=== PATIENT | female | born 1995 | race Hispanic/Latino ===

== ENCOUNTER 2025-05-07 14:00 | Inpatient (IN) | payer SELFPAY ==
[~2025-05-07 14:00] MED LIST: Iopamidol 300 61% 100 ML VIAL FS ONE
[2025-05-07] MEDS ORDERED: Ondansetron PF 4 MG/2 ML Vial ONE ×2 (14:22→18:25)
[2025-05-07] MEDS ORDERED: Cefepime 2 GM VIAL ONE (14:22)
[2025-05-07 14:36] LABS: Actual Bicarbonate (HCO3v) 16.9 mEq/L (22-28); Analyzer IN Cardio CS ER; Base Excess -1.6 mEq/L (-2 - +2); Calcium, Ionized (venous) 1.16 mmol/L (1.16-1.32); Chloride (VBG) 105 mmol/L (98-106); Critical Notified By: clumpkins rt; Hematocrit-VBG 39 % (36.0-47.0); Hemoglobin (Hb) 13.4 g/dL (11.7-15.5); Potassium (VBG) 3.46 mmol/L (3.70-5.30); Puncture Site Other Site; RapidComm Collect By ers.n4; Sodium 138 mmol/L (133-146)
[2025-05-07 15:03] LABS: Glucose, Urine (Dipstick) Normal (Negative); Leukocyte 500 (Negative); Protein, Urine (Dipstick) 100 mg/dl (Neg-Trace); Specific Gravity, Urine 1.010 (1.005-1.030)
[2025-05-07 15:05] LABS: Hematocrit 35.4 % (34.9-44.5); Hemoglobin 12.5 g/dL (12.0-15.5); Mean Corpuscular Hemoglobin 30.9 pg (27.0-33.0); Mean Corpuscular Volume 87.4 fL (81.6-98.3); Platelet Count 252 10x3/uL (150-450); Red Blood Cell (RBC) Count 4.05 10x6/uL (3.90-5.03); White Blood Cell (WBC) Count 6.51 10x3/uL (3.5-10.5)
[2025-05-07 15:10] LABS: ALT (SGPT) 23 U/L (Less than 34); AST (SGOT) 21 U/L (11-34); Albumin 3.5 g/dL (3.1-4.5); Alkaline Phosphatase 110 U/L (40-110); Anion Gap 16 mmol/L (10-20); BUN (Urea Nitrogen) 17 mg/dL (7.0-18.7); Bilirubin, Total 0.7 mg/dL (0.3-1.2); Calc. Creatinine Clearance 0 mL/min (70-130); Calcium 9.9 mg/dL (7.8-10.44); Carbon Dioxide 17 mmol/L (22-29); Chloride 107 mmol/L (98-107); Globulin 4.0 g/dL (2.4-3.5); Glucose 94 mg/dL (70-105); Potassium 3.4 mmol/L (3.5-5.1); Sodium 137 mmol/L (136-145)
[2025-05-07 15:39] LABS: RBC Morphology Within Normal Limits
[2025-05-07 15:40] LABS: MDiff Complete? YES; Platelet Adequacy Comment Appears Adequate
[2025-05-07 15:51] LABS: CAUTI Indications for Culture Pelvic or flank pain; RBC/HPF Greater than 50 HPF (0-3); WBC/HPF Greater than 50 HPF (0-3)
[2025-05-07 15:53] LABS: Bacteria/HPF 2+ HPF (None Seen)
[2025-05-07 15:54] LABS: Mucous/LPF 1+ LPF (<2+)
[2025-05-07 15:57] LABS: Urine Culture Reflex Yes Yes
[2025-05-07] MEDS ORDERED: HYDROcodone/Acetaminophen 5/325 mg Tablet PO PRN ×2 (16:59)
[2025-05-07] MEDS ORDERED: Acetaminophen 500 MG TAB PO PRN (16:59)
[2025-05-07] MEDS: VANCOMYCIN 2 GRAM/400 ML BAG 2 GM in Premix 1 BAG IVPB SCH (17:53)
[2025-05-07] MEDS ORDERED: PROPOFOL 20 ML ONE (18:25)
[2025-05-07] MEDS ORDERED: Rocuronium Bromide 10 MG/ML (10ML VIAL) ONE ×2 (18:25→19:11)
[2025-05-07] MEDS ORDERED: Lidocaine 1% PF 5 ML VIAL ONE (18:25)
[2025-05-07] MEDS ORDERED: SUCCINYLCHOLINE/SOD CL,ISO/PF 200 MG/10 ML SYRINGE FS ONE (18:35)
[2025-05-07] MEDS ORDERED: Methylergonovine 0.2 MG/ML VIAL ONE (18:41)
[2025-05-07] MEDS ORDERED: Carboprost 250 MCG/ML AMP ONE (18:41)
[2025-05-07] MEDS ORDERED: Tranexamic Acid 1,000 MG/10 ML VIAL ONE (18:41)
[2025-05-07] MEDS ORDERED: SUGAMMADEX SODIUM 200 MG/2 ML VIAL ONE (19:21)
[2025-05-07] MEDS ORDERED: PHENYLEPHRINE-NS 100 MCG/ML 10 ML SYRINGE ONE (19:35)
[2025-05-07] MEDS ORDERED: Ferric Subsulfate 8 ML TOPICAL SOLN ONE (20:00)
[2025-05-07] MEDS ORDERED: Ketorolac Tromethamine 30 MG (1 mL) VIAL ONE (20:09)
[2025-05-08 00:41] LABS: Hematocrit 28.3 % (34.9-44.5); Hemoglobin 9.6 g/dL (12.0-15.5)
[2025-05-08 06:19] LABS: Hematocrit 26.5 % (34.9-44.5); Hemoglobin 8.8 g/dL (12.0-15.5); Mean Corpuscular Hemoglobin 30.3 pg (27.0-33.0); Mean Corpuscular Volume 91.4 fL (81.6-98.3); Platelet Count 212 10x3/uL (150-450); Red Blood Cell (RBC) Count 2.90 10x6/uL (3.90-5.03); White Blood Cell (WBC) Count 16.72 10x3/uL (3.5-10.5)
[2025-05-08 07:00] LABS: Anion Gap 14 mmol/L (10-20); Carbon Dioxide 19 mmol/L (22-29); Chloride 109 mmol/L (98-107); Potassium 4.0 mmol/L (3.5-5.1); Sodium 138 mmol/L (136-145)
[2025-05-08 07:01] LABS: ALT (SGPT) 17 U/L (Less than 34); AST (SGOT) 16 U/L (11-34); Albumin 2.7 g/dL (3.1-4.5); Alkaline Phosphatase 73 U/L (40-110); BUN (Urea Nitrogen) 11 mg/dL (7.0-18.7); Bilirubin, Total 0.3 mg/dL (0.3-1.2); Calc. Creatinine Clearance 0 mL/min (70-130); Calcium 7.7 mg/dL (7.8-10.44); Globulin 2.6 g/dL (2.4-3.5); Glucose 109 mg/dL (70-105)
[2025-05-08 07:09] LABS: Anisocytosis SLIGHT = 6-15 cells (100X) (0-5/hpf); MDiff Complete? YES; Platelet Adequacy Comment Appears Adequate; Polychromasia SLIGHT = 2-3 cells (100X) (0-2/hpf)
[2025-05-08] MEDS: Ibuprofen 200 MG TAB PO PRN (09:08)
[2025-05-09 07:42] LABS: #Basophils 0.04 10x3/uL (0.0-0.2); #Eosinophils 0.25 10x3/uL (0.0-0.5); #Monocytes 0.63 10x3/uL (0.0-1.1); #Neutrophils 7.77 10x3/uL (1.5-8.4); %Basophils 0.3 % (0.0-2.0); %Eosinophils 2.2 % (0.0-6.0); %Lymphocytes 23.2 % (18.0-47.0); %Monocytes 5.4 % (0.0-10.0); %Neutrophils 67.2 % (40.0-75.0); Hematocrit 25.3 % (34.9-44.5); Hemoglobin 8.5 g/dL (12.0-15.5); Mean Corpuscular Hemoglobin 30.5 pg (27.0-33.0); Mean Corpuscular Volume 90.7 fL (81.6-98.3); Platelet Count 277 10x3/uL (150-450); Red Blood Cell (RBC) Count 2.79 10x6/uL (3.90-5.03); White Blood Cell (WBC) Count 11.57 10x3/uL (3.5-10.5)
[2025-05-09 11:55] VITALS: BP 129/74; TEMP 98.6
== END 2025-05-09 14:45 | disposition home or self-care (01) | DRG 776 ==
LOC: CSHERS 14:00 → CSHPP 16:04 → OBSVTOIN 16:04
PROVIDERS: ADMIT Student in an Organized Health Care Education/Training Program; ATTEND Student in an Organized Health Care Education/Training Program
DX: O86.20 Urinary tract infection following delivery, unspecified (principal); N80.9 Endometriosis, unspecified; O90.89 Other complications of the puerperium, not elsewhere classified
CPT/HCPCS: 36415; 71045; 74177; 80053; 81001; 82728; 82805; 84145; 85025; 86140; 87040; 87076; 87077; 87086; 87149; 87186; 88305; 94760; 96365; 96375; J0692; J1100; J1885; J2210; J2250; J2270; J2405; J2543; J2704; J3010; J3375; J3490; J7120; Q9967